=== PATIENT | female | born 1990 | race Caucasian/White ===

== ENCOUNTER 2020-02-12 11:46 | Emergency (ER) | payer BC ==
[~2020-02-12] VITALS: Ht 167.6 cm; Wt 90.7 kg
[~2020-02-12 11:46] MED LIST: COLACE100 MG PO; PRENATAL CAPSU1 EACH
[2020-02-12] MEDS ORDERED: SODIUM CHLORIDE 0.9% 1000ML 1,000 ML IV STA (11:59)
[2020-02-12] MEDS ORDERED: DIPHENHYDRAMINE HCL INJ 50 MG/ML VIAL IV ONE (12:00)
[2020-02-12] MEDS ORDERED: ACETAMIN/BUTALBITAL/CAFFEINE TAB PO ONE (12:00)
[2020-02-12] MEDS ORDERED: METOCLOPRAMIDE HCL 10 MG/2ML VIAL IV ONE (12:00)
--- NOTE | 2020-02-12 12:20 | Emergency Department Note ---
History of Present Illnes History of Present Illness Chief Complaint: Neurological History of Present Illness This is a 29 year old female arrived to the ED with complaints of a headache. Patient states she had a lumbar puncture done on Wednesday by a neurologist given her history of pseudotumor cerebri. Patient states the headache has been worsening since. Patient states she was told by her neurologist that the headache will last 24-48 hours. Patient states she is taking Diamox for the headache, patient states the headache is unrelenting is now limiting her day-to-day activity. Headache associated nausea, vomiting and dizziness Historian: Patient Arrival Mode: Car Severity: mild Onset quality: gradual Timing of current episode: constant Progression: worsening Chronicity: recurrent Context: Reports other (lumbar puncture) Past Medical/Family History Physician Review I have reviewed the patient's past medical and family history. Any updates have been documented here. Past Medical History Recent Fever: No Clinical Suspicion of Infectio: No New/Unexplained Change in Ment: No Other Medical History: psuedo tumors Past Surgical History: Cholecysctectomy Other Surgery: GASTRIC SLEEVE tonsillectomy D & C Social History Smoking Cessation: Former smoker Any Illegal Drug Use: No TB Exposure/Symptoms: No Physically hurt or threatened: No Family History Family history of heart diseas: Yes Other Last Tetanus: UNK Review of Systems Review of Systems Constitutional: Reports as per HPI EENTM: Reports no symptoms Cardiovascular: Reports no symptoms Respiratory: Reports no symptoms Gastrointestinal: Reports no symptoms Genitourinary: Reports no symptoms Musculoskeletal: Reports no symptoms Integumentary: Reports no symptoms Neurological: Reports as per HPI, Reports headache Psychological: Reports no symptoms Endocrine: Reports no symptoms Hematological/Lymphatic: Reports no symptoms Physical Exam Related Data Allergies: Coded Allergies: No Known Drug Allergies (Verified Allergy, Mild, 11/30/10) Triage Vital Signs Vital Signs Date Time Temp Pulse Resp B/P (MAP) Pulse Ox O2 Delivery O2 Flow Rate FiO2 02/12/20 11:54 97.3 125 18 137/81 100 Vital signs reviewed: Yes (LP site appears normal, no signs of infection) Physical Exam CONSTITUTIONAL Constitutional: Present well-developed, Present well-nourished HENT HENT: Present normocephalic, Present atraumatic, Present oropharynx clear/moist, Present nose normal HENT L/R: Present left ext ear normal, Present right ext ear normal EYES Eyes: Reports PERRL, Reports conjunctivae normal NECK Neck: Present ROM normal PULMONARY Pulmonary: Present effort normal, Present breath sounds normal CARDIOVASCULAR Cardiovascular: Present regular rhythm, Present heart sounds normal, Present capillary refill normal, Present normal rate GASTROINTESTINAL Abdominal: Present soft, Present nontender, Present bowel sounds normal GENITOURINARY Genitourinary: Present exam deferred SKIN Skin: Present warm, Present dry MUSCULOSKELETAL Musculoskeletal: Present ROM normal NEUROLOGICAL Neurological: Present alert, Present oriented x 3, Present no gross motor or sensory deficits PSYCHOLOGICAL Psychological: Present mood/affect normal, Present judgement normal Results Laboratory Lab results reviewed: Yes Imaging Imaging results reviewed: Yes Assessment & Plan Assessment & Plan Final Impression: (1) MIGRAINE WITH AURA, INTRACTABLE, WITH STATUS MIGRAINOSUS (2) ACUTE POST-TRAUMATIC HEADACHE, INTRACTABLE Last Vital Signs Date Time Temp Pulse Resp B/P (MAP) Pulse Ox O2 Delivery O2 Flow Rate FiO2 02/12/20 11:54 97.3 125 18 137/81 100 Home Meds Reported Medications Pnv Comb.no58/Iron Bisgly/Fa ( CAPSULE) 1 Each Capsule 03/10/13 Docusate Sodium (COLACE) 100 Mg Cap, 100 MG PO 03/10/13 Medications in the ED Metoclopramide HCl 10 mg ONCE ONCE IV ; Start 02/12/20 at 12:00; Stop 02/12/20 at 12:04; Status DC Diphenhydramine HCl 25 mg NOW ONCE IV ; Start 02/12/20 at 12:00; Stop 02/12/20 at 12:04; Status DC Sodium Chloride 1,000 ml @ 0 mls/hr Q0M STAT IV ; Start 02/12/20 at 11:59; Stop 02/12/20 at 12:03; Status DC Acetaminophen/ Butalbital/ Caffeine 1 ea ONCE ONCE PO ; Start 02/12/20 at 12:00; Stop 02/12/20 at 12:04; Status DC JARED MACKAY DO Feb 12, 2020 12:37
[2020-02-12 13:02] LABS: BASOPHILS # (AUTO) 0.1 (0.0-0.1); BASOPHILS % 0.7 % (0.0-1.0); EOSINOPHILS # (AUTO) 0.1 (0.0-0.4); EOSINOPHILS % 0.9 % (0.0-6.0); HEMATOCRIT 45.9 % (34.2-44.1); HEMOGLOBIN 15.3 g/dL (12.0-16.0); LYMPHOCYTES # (AUTO) 2.5 (1.0-3.2); LYMPHOCYTES % 27.2 % (18.0-39.1); MEAN CORPUSCULAR HEMOGLOBIN 30.2 pg (28-32); MEAN CORPUSCULAR HGB CONC 33.3 g/dL (31-35); MEAN CORPUSCULAR VOLUME 90.5 fL (81-99); MONOCYTES # (AUTO) 0.6 (0.2-0.8); MONOCYTES % 5.9 % (4.4-11.3); NEUTROPHILS # (AUTO) 6.1 (2.1-6.9); NEUTROPHILS % 65.2 % (38.7-80.0); PLATELET COUNT 281 x10e3/uL (140-360); RED BLOOD COUNT 5.07 x10e6/uL (3.6-5.1)
--- NOTE | 2020-02-12 13:05 | Diagnostic Imaging Report ---
EXAMINATION: Head CT HISTORY: Headaches COMPARISON: None. TECHNIQUE: Helical axial images of the head were obtained. Reformatted coronal and sagittal images from the axial data. Dose modulation, iterative reconstruction, and/or weight based adjustment of the mA/kV was utilized to reduce the radiation dose to as low as reasonably achievable. Image quality: Motion/streaking artifact limits the evaluation of the skull base and posterior cranial fossa. FINDINGS: Parenchyma: 1. No abnormal densities. 2. No mass or hemorrhage. No CT evidence of acute territorial vascular insult. Extra-axial spaces:No abnormal density. No extra-axial fluid collections Brain volume: Normal for age. Ventricles: No hydrocephalus or displacement. Arteries: No density suggestive of thrombus. Dural sinuses: No abnormal density. Foramen magnum: No mass, Chiari malformation, or basilar invagination. Sella: No obvious mass. Paranasal/mastoid sinuses: Imaged portions unremarkable. Skull/Scalp: No lytic or blastic lesions. No fractures. IMPRESSION: No intracranial abnormalities. Signed by: Dr. Jeanna Roberts M.D. on 02/12/2020 1:02 PM
[2020-02-12 13:24] LABS: ALANINE AMINOTRANSFERASE 12 IU/L (0-55); ALBUMIN 4.1 g/dL (3.5-5.0); ALBUMIN/GLOBULIN RATIO 1.1 (0.8-2.0); ALKALINE PHOSPHATASE 52 IU/L (40-150); ANION GAP 16.7 mmol/L (8-16); BLOOD UREA NITROGEN 13 mg/dL (7-26); BUN/CREATININE RATIO 13 (6-25); CALCIUM 9.3 mg/dL (8.4-10.2); CARBON DIOXIDE 15 mmol/L (22-29); CHLORIDE 110 mmol/L (98-107); CREATININE, SERUM 0.99 mg/dL (0.57-1.11); EST GLOMERULAR FILTRATION RATE > 60 ML/MIN (60-); GLUCOSE 89 mg/dL (74-118); POTASSIUM 3.7 mmol/L (3.5-5.1); SODIUM 138 mmol/L (136-145)
--- NOTE | 2020-02-12 14:38 | NUR ---
Pt seen outside smoking, pt ambulated back into ED and back to hallway stretcher.
== END 2020-02-12 15:41 | disposition other institution (70) ==
LOC: ER 11:46
DX: G43.111 Migraine with aura, intractable, with status migrainosus (principal); G44.311 Acute post-traumatic headache, intractable; Z98.84 Bariatric surgery status
CPT/HCPCS: 36415; 70450; 80053; 84702; 85025; 93005; 99284; J1200; J2765; J7030